=== PATIENT | female | born 1970 | race Caucasian/White ===

== ENCOUNTER 2019-07-21 07:54 | Outpatient (RCR) | payer BC, OTHER | END 2019-10-19 | disposition home or self-care (01) | LOC: ONC 07:54 | PROVIDERS: ATTEND Internal Medicine Hematology & Oncology | DX: Z01.89 Encounter for other specified special examinations (principal) | CPT/HCPCS: 99214 ==

== ENCOUNTER 2020-02-22 02:12 | Emergency (ER) | payer BC ==
[~2020-02-22] VITALS: Ht 162.6 cm; Wt 88.1 kg
--- OUTSIDE RECORDS SUMMARY | 2020-02-22 02:18 | XMS REPORT | Continuity of Care Document ---
Author Organization Unknown Address Unknown Phone Unavailable Allergies There is no data. Medications There is no data. Problems Date Dx Coded Attending Type Code Diagnosis Diagnosed By 08/17/2019 ALLISON DAY MD Ot Z01.89 ENCOUNTER FOR OTHER SPECIFIED SPECIAL EX 10/19/2019 ALLISON DAY MD Ot Z01.89 ENCOUNTER FOR OTHER SPECIFIED SPECIAL EX Procedures There is no data. Results Test Result Range SUREPATH PAP AND HPV mRNA E6/E7 - 14:46 CLINICAL INFORMATION: NRG LMP: NRG PREV. PAP: NRG PREV. BX: NRG SOURCE: Cervix NRG STATEMENT OF ADEQUACY: NRG INTERPRETATION/RESULT: NRG LOOM FIXER: NRG HPV mRNA E6/E7, SUREPATH VIAL Not Detected NOT DETECTED COMMENT NRG CULTURE, VAGINAL YEAST - 03/23/19 15:17 CULTURE, YEAST, W/DIRECT FLUORESCENT CARLOS SEE NOTE NRG PATHOLOGY REPORT (TISSUE PAHOLOGY) - 16:30 A SOURCE NRG A GROSS DESCRIPTION NRG A DIAGNOSIS NRG CLINICAL INFORMATION NRG PATHOLOGIST NRG Encounters ACCT No. Visit Date/Time Discharge Status Pt. Type Provider Facility Loc./Unit Complaint [id number] 05/03/2019 10:30:00 05/03/2019 23:59: 59 CLS Outpatient [facility] [id number] 04/13/2019 14:30:00 Document Registration [id number] 03/23/2019 14:40:00 Document Registration [id number] 07/21/2019 07:54:00 020 00:01:00 DIS Outpatient ALLISON DAY MD [facility] ONC [id number] 02/22/2020 02:13:[address] Emergency PATEL TRAVIS DO [facility] ER FS LOW BACK PAIN
[2020-02-22] MEDS ORDERED: ONDANSETRON 4 MG (ZOFRAN) ORAL DISSOLVE TAB PO STA (02:23)
[2020-02-22 02:24] VITALS: BP 130/88
[2020-02-22] MEDS ORDERED: KETOROLAC 60 MG/2 ML VIAL IM ONE (02:30)
--- NOTE | 2020-02-22 02:45 | ED Back Pain ---
General Chief Complaint: Back Problems Stated Complaint: LOW BACK PAIN Nursing Triage Note: pt states left flank pain started around midnight tonight, no hx of kidney stones, does state frequency with burning and foul smelling urine Nursing Sepsis Screen: No Definite Risk Source of Information: Patient Exam Limitations: No Limitations History of Present Illness Date Seen by Provider: Feb 22, 2020 Time Seen by Provider: 02:38 Initial Comments Pt presents w sudden onset left low back and flank pain tonight. Began about 4 hours ago and persists on arrival to ER. No preceding illness, fever or chills. Some pain left lower abdomen radiating from back. Did notice foul smelling urine Allergies and Home Medications Allergies Coded Allergies: No Known Drug Allergies (Unverified , 02/22/20) Patient Home Medication List Home Medication List Reviewed: Yes Review of Systems Constitutional: No chills, No fever, No malaise Respiratory: No cough, No short of breath Cardiovascular: No chest pain, No palpitations Gastrointestinal: see HPI, nausea, vomiting (x1) Genitourinary: see HPI, decreased output; No discharge, No dysuria, No frequency, No hematuria, No nocturia; pain Musculoskeletal: see HPI, back pain Skin: No change in color, No lesions, No lumps, No rash Past Hihrerx-Amnxdm-Apmjyw Hx Past Med/Social Hx: Reviewed Nursing Past Med/Soc Hx Patient Social History Alcohol Use: Denies Use Recreational Drug Use: No Smoking Status: Never a Smoker 2nd Hand Smoke Exposure: No Recent Foreign Travel: No Contact w/Someone Who Travel: No Recent Infectious Disease Expo: No Recent Hopitalizations: No Physical Abuse: No Sexual Abuse: No Mistreated: No Fear: No Seasonal Allergies Seasonal Allergies: No Past Medical History Surgeries: Yes Hysterectomy, Tubal Ligation Respiratory: No Cardiac: Yes Hypertension Neurological: No Genitourinary: No Gastrointestinal: No Musculoskeletal: No Endocrine: No HEENT: No Cancer: Yes Cervical What Type of Treatment Did You: Radiation Psychosocial: No Integumentary: No Blood Disorders: No Physical Exam Vital Signs Vital Signs - First Documented 02/22/20 02:24 Temp 35.7 Pulse 93 Resp 16 B/P (MAP) 130/88 (102) Pulse Ox 97 O2 Delivery Room Air Capillary Refill : Less Than 3 Seconds Height, Weight, BMI Height: '" Weight: lbs. oz. kg; 33.00 BMI Method: General Appearance: No Apparent Distress, WD/WN Cardiovascular: Regular Rate, Rhythm, No Edema, No JVD Respiratory: Chest Non Tender, Lungs Clear Gastrointestinal: Soft, Tenderness (left flank, left CVA, LLQ and suprapubic) Back: Normal Inspection, No Vertebral Tenderness; No Decreased Range of Motion (full ROM painless), No Muscle Spasm Neurologic/Psychiatric: Alert, Normal Mood/Affect Progress/Results/Core Measures Results/Orders Lab Results Laboratory Tests Test 02/22/20 02:20 Range/Units Urine Color YELLOW Urine Clarity CLOUDY H Urine pH 6.5 5-9 Urine Specific [place] 1.025 H 1.016-1.022 Urine Protein TRACE H NEGATIVE Urine Glucose (UA) NEGATIVE NEGATIVE Urine Ketones NEGATIVE NEGATIVE Urine Nitrite NEGATIVE NEGATIVE Urine Bilirubin NEGATIVE NEGATIVE Urine Urobilinogen 0.2 < = 1.0 MG/DL Urine Leukocyte Esterase 1+ H NEGATIVE Urine RBC (Auto) TRACE H NEGATIVE Urine RBC 5-10 H /HPF Urine WBC 50-100 H /HPF Urine Squamous Epithelial Cells 5-10 /HPF Urine Crystals NONE /LPF Urine Bacteria MODERATE H /HPF Urine Casts NONE /LPF Urine Mucus SMALL H /LPF Urine Culture Indicated YES My Orders Orders - PATEL TRAVIS DO Ua Culture If Indicated (02/22/20 02:23) Ondansetron Oral Dissolve Tab (Zofran (02/22/20 02:23) Ketorolac Injection (Toradol Injection) (02/22/20 02:30) Urine Culture (02/22/20 02:20) Ciprofloxacin Tablet (Cipro Tablet) (02/22/20 03:00) Medications Given in ED Current Medications Medications Dose Ordered Sig/Yoshi Route Start Time Stop Time Status Last Admin Dose Admin Ketorolac Tromethamine 60 mg ONCE ONCE IM 02/22/20 02:30 02/22/20 02:31 DC 02/22/20 02:45 60 MG Vital Signs/I&O 02/22/20 02:24 Temp 35.7 Pulse 93 Resp 16 B/P (MAP) 130/88 (102) Pulse Ox 97 O2 Delivery Room Air Blood Pressure Mean: 102 Departure Impression Primary Impression: Pyelonephritis Disposition: 01 HOME, SELF-CARE Condition: Improved Departure-Patient Inst. Decision time for Depature: 03:02 Referrals: MONTSE LAI DO (PCP/Family) Primary Care Physician Patient Instructions: Kidney Infection (DC) Add. Discharge Instructions: See your doctor in 1 wk, ER sooner if unable to see your doctor and if worse. All discharge instructions reviewed with patient and/or family. Voiced understanding. Scripts Ondansetron (Ondansetron Odt) 4 Mg Tab.rapdis 4 MG PO TID for Nausea, #10 TAB Prov: PATEL TRAVIS DO 02/22/20 Phenazopyridine HCl (Pyridium) 200 Mg Tablet 1 TAB PO BID, #6 TAB Prov: PATEL TRAVIS DO 02/22/20 Ibuprofen (Ibuprofen) 800 Mg Tablet 800 MG PO Q8H PRN for PAIN, #30 TAB 0 Refills Prov: PATEL TRAVIS DO 02/22/20 Hydrocodone/Acetaminophen (Hydrocodone-Acetamin 5-325 mg) 1 Each Tablet 1 EACH PO Q4H for Abdominal Pain, #20 TAB Prov: PATEL TRAVIS DO 02/22/20 Ciprofloxacin HCl (Ciprofloxacin HCl) 500 Mg Tablet 500 MG PO BID, #20 TAB Prov: PATEL TRAVIS DO 02/22/20 PATEL TRAVIS DO Feb 22, 2020 02:45
[2020-02-22 02:53] LABS: BILIRUBIN,URINE NEGATIVE (NEGATIVE); CLARITY,URINE CLOUDY; COLOR,URINE YELLOW; GLUCOSE, URINE (UA) NEGATIVE (NEGATIVE); KETONES,URINE NEGATIVE (NEGATIVE); LEUKOCYTE ESTERASE ,URINE 1+ (NEGATIVE); NITRITE,URINE NEGATIVE (NEGATIVE); PH,URINE 6.5 (5-9); PROTEIN,URINE TRACE (NEGATIVE)
[2020-02-22 02:54] LABS: BACTERIA,URINE MODERATE /HPF; WBC,URINE 50-100 /HPF
[2020-02-22] MEDS ORDERED: CIPROFLOXACIN 500 MG (CIPRO) TABLET PO SCH (03:00)
[2020-02-22] MEDS ORDERED: IBUP-1780 PO (03:04)
[2020-02-22] MEDS ORDERED: PHEN-640 PO (03:04)
[2020-02-22] MEDS ORDERED: CIPR500T4 PO (03:04)
[2020-02-22] MEDS ORDERED: ONDA4TAB11 PO (03:04)
[2020-02-22] MEDS ORDERED: HYDR-3812 PO (03:04)
== END 2020-02-22 03:11 | disposition home or self-care (01) ==
LOC: EDUNIT# 02:12 → ER FS 02:13
DX: N12 Tubulo-interstitial nephritis, not specified as acute or chronic (principal); Z85.41 Personal history of malignant neoplasm of cervix uteri
CPT/HCPCS: 81000; 87077; 87088; 99284